=== PATIENT | male | born 1945 | race Two or more races ===

== ENCOUNTER 2018-10-22 22:01 | Emergency (ER) | payer MEDICARE, OTHER ==
[~2018-10-22] VITALS: Ht 167.6 cm; Wt 79.4 kg
[~2018-10-22 22:01] MED LIST: AMLO5TAB9 PO; ASPI81TA31 PO; Benazepril Hcl PO; CALC-513 PO; CLON0.1T PO; DICY20TA11 PO; Divalproex Sodium PO; LEVE100023 PO; MECL12.582 PO; METF-495 PO; SERT50TA12 PO; ZOLP5TAB8 PO
[2018-10-22] MEDS ORDERED: TETRACAINE HCL 0.5% OPHT DROP 2 ML BOTTLE OP ONE (22:30)
[2018-10-22] MEDS ORDERED: FLUORESCEIN SODIUM 1 MG STRIP OP ONE (22:30)
[2018-10-22] MEDS ORDERED: TETRACAINE HCL 0.5% OPHT DROP 2 ML BOTTLE ONE (22:37)
[2018-10-22] MEDS ORDERED: FLUORESCEIN SODIUM 1 MG STRIP ONE (22:38)
--- NOTE | 2018-10-22 22:38 | NUR ---
Patient unable to complete visual acuity
[2018-10-22 23:26] VITALS: BP 131/87
--- NOTE | 2018-10-22 23:26 | NUR ---
Patient discharged to home in stable conditon. Written and verbal after care instructions given. Patient verbalizes understanding of instructions. Ambulated from ER with stable gait. All belongings with patient.
== END 2018-10-22 23:27 | disposition home or self-care (01) ==
LOC: ER 22:01
DX: B30.9 Viral conjunctivitis, unspecified (principal); I10 Essential (primary) hypertension; Z79.82 Long term (current) use of aspirin; Z79.899 Other long term (current) drug therapy
CPT/HCPCS: A4663

== ENCOUNTER 2024-02-20 21:18 | Emergency (ER) | payer MEDICARE, OTHER ==
[~2024-02-20] VITALS: Ht 154.9 cm; Wt 80.3 kg
[~2024-02-20 21:18] MED LIST changes: +AMLO-212 PO; -AMLO5TAB9 PO; +MECL-225 PO; -MECL12.582 PO; +SERT-439 PO; -SERT50TA12 PO
[2024-02-20 21:38] LABS: *BILIRUBIN,URIN NEGATIVE (NEGATIVE); *BLOOD, URINE NEGATIVE (NEGATIVE); *CLARITY,URINE CLEAR (CLEAR); *COLOR,URINE YELLOW (YELLOW); *KETONES,URINE NEGATIVE (NEGATIVE); *PROTEIN,URINE NEGATIVE (NEGATIVE); *UROBILINOGEN,URINE 0.2 E.U./dl (NORMAL); LEUKOCYTE ESTERASE ,URINE NEGATIVE (NEGATIVE); NITRITE, URINE NEGATIVE (NEGATIVE); PH,URINE 5.5 (5.0-8.0); UGLUCOSE NEGATIVE (NEGATIVE)
[2024-02-20 23:43] VITALS: BP 130/88; TEMP 97.7; O2SAT 97
== END 2024-02-20 23:25 | disposition home or self-care (01) ==
LOC: ER 21:23
DX: N40.1 Benign prostatic hyperplasia with lower urinary tract symptoms (principal); R31.9 Hematuria, unspecified; G40.909 Epilepsy, unspecified, not intractable, without status epilepticus; I10 Essential (primary) hypertension; Z86.73 Personal history of transient ischemic attack (TIA), and cerebral infarction without residual deficits; E11.9 Type 2 diabetes mellitus without complications; Z79.899 Other long term (current) drug therapy; Z79.82 Long term (current) use of aspirin; Z79.84 Long term (current) use of oral hypoglycemic drugs
CPT/HCPCS: A4606; A4663

== ENCOUNTER 2024-03-13 17:58 | Emergency (ER) | payer MEDICARE, OTHER ==
[~2024-03-13] VITALS: Ht 157.5 cm; Wt 77.1 kg
[2024-03-13 19:12] LABS: *BILIRUBIN,URIN NEGATIVE (NEGATIVE); *BLOOD, URINE 3+ (NEGATIVE); *CLARITY,URINE SLIGHTLY CLOUDY (CLEAR); *COLOR,URINE AMBER (YELLOW); *KETONES,URINE NEGATIVE (NEGATIVE); *PROTEIN,URINE 2+ (NEGATIVE); *UROBILINOGEN,URINE 0.2 E.U./dl (NORMAL); LEUKOCYTE ESTERASE ,URINE NEGATIVE (NEGATIVE); NITRITE, URINE NEGATIVE (NEGATIVE); PH,URINE 5.5 (5.0-8.0); UGLUCOSE NEGATIVE (NEGATIVE)
[2024-03-13 19:25] LABS: BASOPHILS % (AUTO) 0.6 % (0.0-2.0); EOSINOPHILS # (AUTO) 0.1 K/uL (0.0-0.7); EOSINOPHILS % (AUTO) 2.5 % (0.0-7.0); HEMATOCRIT 41.7 % (36.7-47.1); HEMOGLOBIN 14.2 g/dL (12.5-16.3); LYMPHOCYTES # (AUTO) 2.4 K/uL (0.8-4.8); LYMPHOCYTES % (AUTO) 41.9 % (20.5-51.5); MEAN CORPUSCULAR HEMOGLOBIN 31.7 uug (23.8-33.4); MEAN CORPUSCULAR HGB CONC 34 g/dL (32.5-36.3); MEAN CORPUSCULAR VOLUME 93.1 fL (73.0-96.2); MONOCYTES # (AUTO) 0.4 K/uL (0.1-1.30); NEUTROPHILS # (AUTO) 2.8 K/uL (1.8-8.9); PLATELET COUNT (AUTO) 189 K/uL (152-348); RED BLOOD CELL COUNT(AUTO) 4.48 MIL/uL (4.06-5.63); RED CELL DISTRIBUTION WIDTH 13.3 % (12.1-16.2); WHITE BLOOD COUNT (AUTO) 5.8 K/uL (3.6-10.2)
[2024-03-13 19:28] LABS: DIFFERENTIAL COMMENT 1
[2024-03-13 19:29] LABS: RBC,URINE TNTC /HPF (0-3)
[2024-03-13 19:30] LABS: WBC,URINE 0-3 /HPF (0-3)
[2024-03-13 19:31] LABS: BACTERIA,URINE FEW /HPF (NONE SEEN); SQUAMOUS EPITHELIAL CELL,UR FEW /HPF (NONE SEEN)
[2024-03-13 19:32] LABS: CALCIUM 8.5 mg/dL (8.5-10.1); CARBON DIOXIDE 27 mmol/L (21-32); CHLORIDE 95 mmol/L (98-107); CREATININE 0.9 mg/dL (0.6-1.3); GLUCOSE 116 mg/dL (74-106); POTASSIUM 3.6 mmol/L (3.5-5.1); SODIUM SERUM 131 mmol/L (136-145); UREA NITROGEN, BLOOD 14 mg/dL (7-18)
[2024-03-13 19:38] LABS: ALANINE AMINOTRANSFERASE 29 U/L (16-63); ALBUMIN 3.6 g/dL (3.4-5.0); ALKALINE PHOSPHATASE 67 U/L (50-136); ASPARTATE AMINOTRANSFERASE 14 U/L (15-37); BILIRUBIN,DIRECT 0.1 mg/dL (0.0-0.2); BILIRUBIN,TOTAL 0.3 mg/dL (0.2-1.0); TOTAL PROTEIN, SERUM 6.6 g/dL (6.4-8.2)
[2024-03-13] MEDS ORDERED: HYDR-3972 PO (21:50)
[2024-03-13] MEDS ORDERED: TRAN650T5 PO (21:50)
[2024-03-13 22:03] VITALS: BP 122/82; TEMP 98.4; O2SAT 96
== END 2024-03-13 22:00 | disposition home or self-care (01) ==
LOC: ER 17:59
DX: N21.0 Calculus in bladder (principal); R31.9 Hematuria, unspecified; G40.909 Epilepsy, unspecified, not intractable, without status epilepticus; I10 Essential (primary) hypertension; E11.9 Type 2 diabetes mellitus without complications; Z86.73 Personal history of transient ischemic attack (TIA), and cerebral infarction without residual deficits; Z79.82 Long term (current) use of aspirin; Z79.84 Long term (current) use of oral hypoglycemic drugs; Z79.899 Other long term (current) drug therapy
CPT/HCPCS: 36415; 76700; 85025; A4606; A4663